=== PATIENT | female | born 1985 | race Two or more races ===

== ENCOUNTER 2023-02-23 17:21 | Emergency (ER) | payer OTHER ==
[~2023-02-23] VITALS: Ht 165.1 cm; Wt 124.5 kg
[2023-02-23] MEDS ORDERED: IBUP-1456 PO (18:27)
[2023-02-23 18:35] VITALS: BP 124/58
== END 2023-02-23 19:06 | disposition home or self-care (01) ==
LOC: EDSEX 17:21 → ER 17:21
DX: S93.402A Sprain of unspecified ligament of left ankle, initial encounter (principal); Z88.0 Allergy status to penicillin; X58.XXXA Exposure to other specified factors, initial encounter; Y93.89 Activity, other specified; Y92.89 Other specified places as the place of occurrence of the external cause; Y99.8 Other external cause status
CPT/HCPCS: 73610